=== PATIENT | male | born 1945 | race Hispanic/Latino ===

== ENCOUNTER 2018-05-28 13:03 | Emergency (ER) | payer SELFPAY ==
[2018-05-28 13:10] VITALS: BP 113/71; PULSE 77; RESP 17; TEMP 96.1; O2SAT 96
--- NOTE | 2018-05-28 17:00 | ED PDOC ---
HPI: Psych/Substance Abuse Time Seen by Provider: 05/28/18 13:11 Chief Complaint (Nursing): Alcohol Ingestion Chief Complaint (Provider): Alcohol Ingestion History Per: Patient History/Exam Limitations: no limitations Additional Complaint(s): Krzysztof Angela is a 72 year old male with no significant past medical history, who presents to the emergency department with EMS after being found intoxicated. Patient states that he drank 6-pack of beer and some vodka today. He denies having any history of alcohol abuse or DTs. Patient states he has not had any falls and denies having any physical complaints and feels well. Patient would like to go home. He denies any history of HTN, HLD, DM, CAD, SD or CVA. PMD: No provider Past Medical History Reviewed: Historical Data, Nursing Documentation, Vital Signs Vital Signs: Last Vital Signs Temp 96.1 F L 05/28/18 13:09 Pulse 77 05/28/18 13:09 Resp 17 05/28/18 13:09 BP 113/71 05/28/18 13:09 Pulse Ox 96 05/28/18 13:09 - Medical History PMH: No Chronic Diseases Denies: CVA, Diabetes, HTN, Hyperlipidemia - Surgical History Surgical History: No Surg Hx - Family History Family History: States: Unknown Family Hx - Allergies Allergies/Adverse Reactions: Allergies Allergy/AdvReac Type Severity Reaction Status Date / Time Unobtainable Allergy Verified 05/28/18 13:08 Review of Systems ROS Statement: Except As Marked, All Systems Reviewed And Found Negative Constitutional: Positive for: Other (intoxication) Cardiovascular: Negative for: Chest Pain Respiratory: Negative for: Cough, Shortness of Breath Neurological: Positive for: Other. Negative for: Confusion, Altered Mental Status Physical Exam - Reviewed Nursing Documentation Reviewed: Yes Vital Signs Reviewed: Yes - Physical Exam Appears: Positive for: Non-toxic, No Acute Distress Head Exam: Positive for: ATRAUMATIC, NORMOCEPHALIC Eye Exam: Positive for: Conjunctival injection (bilateral) Cardiovascular/Chest: Positive for: Regular Rate, Rhythm. Negative for: Murmur Respiratory: Positive for: Normal Breath Sounds. Negative for: Respiratory Distress Neurologic/Psych: Positive for: Alert, Oriented (x3), Gait (walking with a steady gait in room), Other (speaking coherently) - ECG O2 Sat by Pulse Oximetry: 96 (RA) Pulse Ox Interpretation: Normal Medical Decision Making Medical Decision Making: Time: 1636 Plan: --Alcohol serum --CMP --Urine drug screen --CBC with differential --Accucheck Glucose, Blood Time: 1700 Patient left before treatment completion. Patient answered questions appropriately during physical exam and history. He was noted upon review of security camera play back to be ambulating with a steady gait. Scribe Attestation: Documented by Doug Moncada, acting as a scribe for Tracey Easley PA-C. Provider Scribe Attestation: All medical record entries made by the Scribe were at my direction and perso andrew dictated by me. I have reviewed the chart and agree that the record accurately reflects my personal performance of the history, physical exam, medical decision making, and the department course for this patient. I have also personally directed, reviewed, and agree with the discharge instructions and disposition. Disposition - Clinical Impression Clinical Impression: Alcohol abuse with intoxication - Disposition Disposition: Left W/O Treatment Disposition Time: 19:23 Condition: IMPROVED Forms: [employer] ([place])
== END 2018-05-28 16:40 | disposition left against medical advice (07) ==
LOC: H.ER 13:03
DX: F10.129 Alcohol abuse with intoxication, unspecified (principal)